=== PATIENT | male | born 1950 | race Caucasian/White ===

== ENCOUNTER 2024-02-14 08:40 | Emergency (ER) | payer MEDICARE, SELFPAY ==
[2024-02-14] VITALS (36 sets, daily range): BP systolic 101–171; BP diastolic 50–77; PULSE 59–80; RESP 12–26; TEMP 36.7; O2SAT 92–97
--- NOTE | 2024-02-14 08:45 | DI.RAD_ITS ---
Exam(s) XR CHEST 2V PA LATERAL EXAM: XR CHEST 2V PA LATERAL CLINICAL HISTORY: sob TECHNIQUE: 2D digital imaging was performed of the chest. Two images were obtained. PA and lateral views were obtained. COMPARISON: No exams were available for comparison FINDINGS: MEDIASTINUM: Normal. HEART: Normal. PULMONARY VASCULATURE: Normal. LUNGS: Clear. PLEURAL SPACE: No pleural effusion or pneumothorax. BONE:Within normal limits for the patient's age. OTHER FINDINGS:Normal. IMPRESSION: No acute pulmonary findings. DATA REPOSITORY: RADIATION DOSE DELIVERED:
--- NOTE | 2024-02-14 08:45 | RT.EKG_ITS ---
APPROVED REPORT Exam: Resting ECG Reason for Exam: sob Patient Location: E HR:72 bpm ECG Measurements Heart Rate 72 AXIS MT 197 P 26 QRSd 165 QRS 4 QT 437 T 1 QTc 478 Conclusion Sinus rhythm. 72 RBBB no stemi
[2024-02-14 09:10] LABS: Abs Immature Grans 0.07 10^3/uL (0.0-0.06); Absolute Basophil Count 0.03 10^3/uL (0.0-0.2); Absolute Eosinophil Count 0.24 10^3/uL (0.0-0.7); Absolute Lymphocyte Count 1.96 10^3/uL (1.2-3.4); Absolute Monocyte Count 0.88 10^3/uL (0.1-0.8); Absolute Neutrophil Count 6.76 10^3/uL (1.2-6.7); Basophils % 0.3 %; Eosinophils % 2.4 %; HGB 13.3 g/dL (13.5-17.5); Immature Grans % 0.7 %; Lymphocytes % 19.7 %; MCH 32.4 pg (27.0-33.0); MCHC 32.4 % (32.0-36.0); MCV 100 fL (80-95); Monocytes % 8.9 %; Platelet Count 252 10^3/uL (130-400); RDW-SD 47.2 fL; WBC 9.94 10^3/uL (4.4-10.8)
[2024-02-14 09:33] LABS: ALT 28 U/L (16-63); AST 15 U/L (15-37); Albumin 3.7 g/dL (3.4-5.0); Alkaline Phosphatase 67 U/L (46-116); Anion Gap 6.1 mmol/L (3-11); BUN 18 mg/dL (7-18); Bilirubin, Total 0.6 mg/dL (0.2-1.0); CO2 30.9 mmol/L (21.0-32.0); CREATININE 1.4 mg/dL (0.70-1.30); Calcium 8.9 mg/dL (8.5-10.1); Chloride 101 mmol/L (98-107); Estimated GFR 53.74 (mL/min/1.73m2); Glucose 169 mg/dL (74-106); Magnesium 1.9 mg/dL (1.8-2.4); NT-proBNP 436 pg/mL (<300); Potassium 4.4 mmol/L (3.5-5.1); Sodium 138 mmol/L (136-145); Total Protein 7.6 g/dL (6.4-8.2); Troponin I < 50 ng/L (< or =60)
[2024-02-14 12:16] LABS: Troponin I < 50 ng/L (< or =60)
--- NOTE | 2024-02-14 13:48 | W.ED.GENAD ---
Discharge Plan Disposition Patient Disposition: Home Condition: Stable Discharge Details Clinical Impression: Dyspnea Primary Care Provider: Demar Lomas ED Provider: Tisha Christensen Home Meds and New Rx's Prescriptions: No Action metformin 500 MG tablet 500 mg PO BID tamsulosin 0.4 MG capsule 0.4 mg PO ONCE flecainide 50 MG tablet 50 mg PO TID oxycodone 10 MG tablet 30 mg PO four times per day Patient Comments: 06/17/16 Pt states prescription is for BID. PG clobetasol 60 GM cream 1 applic Topical PRN PRN fluticasone propionate [Flonase Allergy Relief] 9.9 ML spray,suspension 2 spray NS PRN PRN (Reason: Allergy Symptoms) polyethylene glycol 3350 17 GM powder in packet 17 gm PO DAILY losartan-hydrochlorothiazide 50-12.5 mg tablet 1 tab PO DAILY Patient Comments: take 1 tablet by mouth daily (DME) FreeStyle Lite Strips Strip MISCELLANEOUS Patient Comments: use 1 TEST STRIP to TEST BLOOD SUGAR three times a day sildenafil 100 mg tablet 100 mg PO ONCE Patient Comments: take 1 tablet by mouth daily 4 PER MONTH testosterone cypionate 200 mg/mL oil IM ONCE Patient Comments: INJECT 1 MILLILITER INTRAMUSCULARLY EVERY 3 WEEKS FOR 90 DAYS travoprost 0.004 % drops Patient Comments: INSTILL 1 DROP INTO BOTH EYES ONCE DAILY IN THE EVENING timolol maleate 0.5 % drops Patient Comments: instill 1 drop into both eyes daily every morning Discharge Instructions Instructions: Dyspnea (ED) Additional Instructions: please follow up with your compliance vice president for further evaluation if you haven't had an echo recently, please call to schedule here HPI General Date/Time Provider Initiated Documentation: 02/14/24 08:54. Limitations to Documentation: no limitations. Information obtained by: patient. HPI Narrative: 73-year-old gentleman with significant past medical history including diabetes, hypertension presents for evaluation of shortness of breath. He reports that last week he was working outside when he felt like his knees gave out. He did not have any preceding symptoms of lightheadedness or chest pain or shortness of breath. He does report severe weakness. He reports that he went to an outside facility and was evaluated. He was told that everything was fine. He does report persistent shortness of breath. He states that he feels like he cannot take a deep breath. He denies any cough. Denies any chest pain. He reports the symptoms are constant, worse with any exertion. Denies any difficulty with sleeping or inability to lay flat. Related Data Home Medications Medication Instructions Recorded Confirmed flecainide 50 mg tablet 50 mg PO TID 03/30/16 02/14/24 metformin 500 mg tablet 500 mg PO BID 03/30/16 02/14/24 oxycodone 10 mg tablet 30 mg PO four times per day 03/30/16 02/14/24 tamsulosin 0.4 mg capsule 0.4 mg PO ONCE 03/30/16 02/14/24 clobetasol 0.05 % topical cream 1 applic topical PRN PRN 06/17/16 02/14/24 fluticasone propionate 50 2 spray NS PRN PRN Allergy Symptoms 06/17/16 02/14/24 mcg/actuation nasal spray,suspension (Flonase Allergy Relief) polyethylene glycol 3350 17 gram 17 gm PO DAILY 06/17/16 02/14/24 oral powder packet blood sugar diagnostic (FreeStyle 02/14/24 02/14/24 Lite Strips) losartan 50 mg-hydrochlorothiazide 1 tab PO DAILY 02/14/24 02/14/24 12.5 mg tablet sildenafil 100 mg tablet 100 mg PO ONCE 02/14/24 02/14/24 testosterone cypionate 200 mg/mL mg IM ONCE 02/14/24 intramuscular oil timolol maleate 0.5 % eye drops drp 02/14/24 travoprost 0.004 % eye drops drp 02/14/24 Allergies Allergy/AdvReac Type Severity Reaction Status Date / Time lisinopril AdvReac Intermediate Cough Unverified 02/14/24 09:16 morphine AdvReac Intermediate Other (See Verified 02/14/24 09:16 Comment) General Stated Complaint: SOB ROBERTO: 3 Exam Narrative Exam Narrative: Review of Systems: All systems reviewed & are unremarkable except as noted in HPI and below Well-developed, no acute distress NCAT PERRL, normal conjunctiva RRR, no murmur Unlabored respiratory effort, clear bilaterally, no wheezes, no crackles, no hypoxia, no tachypnea Nondistended abdomen Extremities w/o deformity, no cyanosis, trace edema bilaterally No rashes or lesions. no focal neurologic deficits Appropriate mood and affect Course Vital Signs Vital signs: Vital Signs Temperature 36.7 C 02/14/24 08:48 Pulse 71 02/14/24 08:48 Respiratory Rate 20 02/14/24 08:48 Blood Pressure 151/77 H 02/14/24 08:48 Pulse Oximetry 97 02/14/24 08:48 Temperature 36.7 C 02/14/24 08:48 Temperature Source Oral 02/14/24 08:48 Pulse 62 02/14/24 12:49 Pulse 75 02/14/24 12:47 Respiratory Rate 16 02/14/24 12:49 Respiratory Effort Normal, Non-Labored 02/14/24 11:51 Respiratory Depth Normal 02/14/24 09:16 Blood Pressure 157/50 H 02/14/24 12:49 Blood Pressure Mean 88 02/14/24 12:49 Blood Pressure Position Supine 02/14/24 11:51 Pulse Oximetry 93 02/14/24 12:49 Oxygen Delivery Method Room Air 02/14/24 11:51 Oxygen Flow Rate 0 02/14/24 08:48 Pain Level 0 02/14/24 08:48 Lab/Test Results Lab/Test Results: Laboratory Tests Range/Units 02/14/24 02/14/24 08:58 11:50 WBC (4.4-10.8) 10^3/uL 9.94 RBC (4.36-5.78) 10^6/uL 4.10 L Hgb (13.5-17.5) g/dL 13.3 L Hct (40.0-50.0) % 41.0 MCV (80-95) fL 100 H MCH (27.0-33.0) pg 32.4 MCHC (32.0-36.0) % 32.4 RDW (11.8-14.1) % 13.0 Plt Count (130-400) 10^3/uL 252 MPV (8.0-11.0) fL 9.0 Immature Gran % % 0.7 Neutrophils % % 68.0 Lymphocytes % % 19.7 Monocytes % % 8.9 Eosinophils % % 2.4 Basophils % % 0.3 Nucleated RBC % (0.0-0.3) % 0.0 Absolute Neutrophils (1.2-6.7) 10^3/uL 6.76 H Absolute Lymphocytes (1.2-3.4) 10^3/uL 1.96 Absolute Monocytes (0.1-0.8) 10^3/uL 0.88 H Absolute Eosinophils (0.0-0.7) 10^3/uL 0.24 Absolute Basophils (0.0-0.2) 10^3/uL 0.03 Sodium (136-145) mmol/L 138 Potassium (3.5-5.1) mmol/L 4.4 Chloride (98-107) mmol/L 101 Carbon Dioxide (21.0-32.0) mmol/L 30.9 Anion Gap (3-11) mmol/L 6.1 BUN (7-18) mg/dL 18 Creatinine (0.70-1.30) mg/dL 1.4 H Est GFR (CKD-EPI 2020) (mL/min/1.73m2) 53.74 Glucose (74-106) mg/dL 169 H Calcium (8.5-10.1) mg/dL 8.9 Magnesium (1.8-2.4) mg/dL 1.9 Total Bilirubin (0.2-1.0) mg/dL 0.6 AST (15-37) U/L 15 ALT (16-63) U/L 28 Alkaline Phosphatase (46-116) U/L 67 Troponin I (< or =60) ng/L < 50 < 50 NT-Pro-B Natriuret Pep (<300) pg/mL 436 H Total Protein (6.4-8.2) g/dL 7.6 Albumin (3.4-5.0) g/dL 3.7 Medical Decision Making Emergent evaluation of shortness of breath. Initial differential includes pneumonia, CHF, trauma. Patient had a near syncopal episode last week and was evaluated at outside facility. I reviewed those records, no acute condition was identified. Patient reports persistence of his symptoms. The patient has a lot of perseveration and repeated questioning asked. The patient has no signs of respiratory distress on initial evaluation, there is no hypoxia or need for intervention. He has no history of heart failure. Lab work was obtained. There is no leukocytosis or significant anemia. His creatinine. I am suspicious that he may have some early signs of heart failure causing his shortness of breath symptoms. The patient is unclear about whether or not he has ever had an echocardiogram. He states that he does see a compliance vice president in [place]. His thinks that he has never had 1. I advised that he should follow-up closely with his compliance vice president for reevaluation of this persistent dyspnea. The compliance vice president can order an outpatient echocardiogram, but if the patient is unable to get one done through his compliance vice president office I have placed an outpatient order as well. Return precautions advised. At this time no significant emergent condition identified and the patient is stable for discharge home. Medical Records Medical records reviewed: Yes I reviewed the patient's medical records. Lab Data Lab results reviewed: Yes I reviewed the patient's lab results. Quality:[facility] Health Related Social Needs: No Data to Display PFSH All Active Problems Dyspnea (Acute) Surgical History Colonoscopy - IV Sedation (06/17/16) Family History Mother Colon cancer Grandmother Diabetes Social History Smoking/Tobacco Use Status: Current every day Smoking risk assessment performed?: Yes Alcohol Intake: never Drug use: Never Housing: house Do you feel safe at home: Yes Do you feel safe in your relationship?: Yes
== END 2024-02-14 13:02 | disposition home or self-care (01) ==
PROVIDERS: Emergency Provider Emergency Medicine; PCP Family Medicine Adult Medicine
DX: R06.00 Dyspnea, unspecified (principal); R55 Syncope and collapse; R42 Dizziness and giddiness; I10 Essential (primary) hypertension
CPT/HCPCS: 36415; 80053; 93005; 99283; 71046; 83735; 83880; 84484; 85025; 93010